=== PATIENT | female | born 1990 | race Caucasian/White ===

== ENCOUNTER 2017-01-09 16:06 | Emergency (ER) | payer BC, OTHER ==
[2017-01-09 16:20] VITALS: RESP 16; O2SAT 98
[2017-01-09 17:40] VITALS: BP 118/76; PULSE 87; TEMP 97.7
--- NOTE | 2017-01-09 17:46 | EDPHY ---
H & P Time Seen by Provider: 01/09/17 16:41 HPI/ROS: This is a 26-year-old female presenting to the emergency department, she reports walking her dog around 3 o'clock this afternoon her dog jerked the leash out of her hand and she hit her hand against a tree. Complaining of left middle and ring finger pain, pain with movement. Denies any other injuries, no other complaints, tetanus up-to-date. REVIEW OF SYSTEMS: Constitutional: No fever chills, no changes in ADLs Respiratory: No cough Cardiac: No chest pain or edema Musculoskeletal: Left hand 2nd and 3rd fingers, and shoulder discomfort Skin: No rash, abrasion to left middle finger Neurological: No headache or dizziness Smoking Status: Never smoked Physical Exam: CONSTITUTIONAL: patient appeared well nourished, non-ill appearing and normally developed. No acute distress. Vital signs as documented. HEENT: Normocephalic atraumatic NECK: FROM without pain RESP: Non-labored resp effort NEURO: AAOx3 EXTREMITIES: Left hand pain at middle finger and ring finger, positive abrasion noted to middle finger at the MIP joint FROM with pain or no difficulty. Positive cms intact. Left shoulder full range of motion without pain or difficulty SKIN: Warm and dry, abrasion noted to left middle finger at the MIP joint PSYCH: Normal affect, calm, no distress Constitutional: Initial Vital Signs Temperature (C) 36.7 C 01/09/17 16:10 Heart Rate 84 01/09/17 16:10 Respiratory Rate 16 01/09/17 16:10 Blood Pressure 107/79 01/09/17 16:10 O2 Sat (%) 98 01/09/17 16:10 O2 Delivery Mode Room Air Allergies/Adverse Reactions: vancomycin Allergy (Intermediate, Verified 01/09/17 16:17) Itching Home Medications: Medication Instructions Recorded NK [No Known Home Meds] 01/09/17 Medical Decision Making - Diagnostics Imaging: History: Pain. Findings: Normal mineralization and alignment. No evidence for acute fracture or dislocation. No significant joint narrowing, periarticular erosion, periarticular spurring. Impression: Normal radiograph left third finger. Dictated By: José Miguel Alfonso MD ED Course/Re-evaluation: Discussed plan of care: X-ray of left hand no acute findings noted. Aluminum splint to left middle finger. Discharge home---> stable, discussed plan of care Differential Diagnosis: Differential diagnosis considered but not limited to finger dislocation, avulsion fracture and metacarpal fracture Departure - Departure Disposition: Home, Routine, Self-Care Clinical Impression: Sprain of finger, left Qualifiers: Encounter type: initial encounter Qualified Code(s): S63.619A - Unspecified sprain of unspecified finger, initial encounter Abrasion hand Qualifiers: Encounter type: initial encounter Laterality: left Qualified Code(s): S60.512A - Abrasion of left hand, initial encounter Condition: Good Instructions: Finger Sprain (ED), Abrasion (ED) Additional Instructions: 1. Wear finger splint for the next couple of days as needed for comfort and support 2. Ice 15 minutes every hour for the next 12 hours as needed for swelling 3. Ibuprofen 600 mg every 6-8 hours as needed for pain 4. Keep abrasions clean and dry, you can use topical antibiotic ointment as needed Referrals: NONE *PRIMARY CARE P,. [Primary Care Provider] - As per Instructions [facility],. [Clinic] - As per Instructions
== END 2017-01-09 18:29 | disposition home or self-care (01) ==
DX: S63.613A Unspecified sprain of left middle finger, initial encounter (principal); S63.615A Unspecified sprain of left ring finger, initial encounter; S60.512A Abrasion of left hand, initial encounter; W22.8XXA Striking against or struck by other objects, initial encounter; Y99.8 Other external cause status; Y93.01 Activity, walking, marching and hiking
CPT/HCPCS: L3925